=== PATIENT | male | born 1955 | race Caucasian/White ===

== ENCOUNTER 2022-01-20 12:25 | Day surgery (SDC) | payer MEDICARE, BC ==
[~2022-01-20 12:25] MED LIST: EPINEPHrine 1 MG/ML 30 ML MDV IRR SCH; Lactated Ringers 1,000 ML IV SCH; Lidocaine 1%/Sod Bicarbonate in NS 8.4% 1 ML Syringe IDERM PRN; Sodium Chloride 0.9% 10 ML Syringe FLUSH PRN; Sodium Chloride 0.9% 10 ML Syringe FLUSH SCH
[2022-01-20] MEDS ORDERED: fentaNYL 100 MCG/2 ML SDV ONE ×2 (12:50→14:46)
[2022-01-20] MEDS ORDERED: Midazolam 1 MG/ML 2 ML SDV ONE (12:50)
[2022-01-20] MEDS ORDERED: Lidocaine 1% 4 ML ONE (12:50)
[2022-01-20] MEDS ORDERED: Propofol 200 MG/20 ML SDV ONE (12:50)
[2022-01-20] MEDS ORDERED: ceFAZolin 1 GM Vial ONE (13:57)
[2022-01-20] MEDS ORDERED: Bupivacaine 0.25% 10 ML SDV ONE (14:15)
[2022-01-20] MEDS ORDERED: Ondansetron 4 MG/2 ML SDV ONE (14:46)
[2022-01-20] MEDS ORDERED: Ketorolac 30 MG/ML SDV ONE (14:46)
[2022-01-20] MEDS ORDERED: Lactated Ringers 1,000 ML ONE (14:58)
[2022-01-20] MEDS ORDERED: Acetaminophen/HYDROcodone 325-5 MG Tab PO ONE (16:15)
== END 2022-01-20 17:03 | disposition home or self-care (01) ==
LOC: JD.SDS 12:25
PROVIDERS: ATTEND Orthopaedic Surgery
DX: S83.232A Complex tear of medial meniscus, current injury, left knee, initial encounter (principal); M22.42 Chondromalacia patellae, left knee; E11.9 Type 2 diabetes mellitus without complications; E03.9 Hypothyroidism, unspecified; K21.9 Gastro-esophageal reflux disease without esophagitis; G47.30 Sleep apnea, unspecified; Z88.0 Allergy status to penicillin; Z91.038 Other insect allergy status; Z79.899 Other long term (current) drug therapy; Z79.890 Hormone replacement therapy; Z91.030 Bee allergy status
CPT/HCPCS: 29881; 82947; J0171; J0690; J1885; J2250; J2405; J2704; J3010; J3490; J7120; 01400